=== PATIENT | female | born 1970 | race Hispanic/Latino ===

== ENCOUNTER 2021-03-04 18:58 | Emergency (ER) | payer OTHER ==
[~2021-03-04] VITALS: Ht 152.4 cm; Wt 108.9 kg
[2021-03-04] MEDS ORDERED: LIDOCAINE HCL 1% LOCAL INJ 20 ML VIAL ONE (19:39)
[2021-03-04] MEDS ORDERED: AUGMENTIN 500-1 EACH PO (20:48)
[2021-03-04] MEDS ORDERED: NAPROSYN500 MG PO (20:48)
[2021-03-04 20:59] VITALS: BP 147/82
== END 2021-03-04 20:59 | disposition home or self-care (01) ==
LOC: FSED 19:16
DX: S61.210A Laceration without foreign body of right index finger without damage to nail, initial encounter (principal); W26.8XXA Contact with other sharp object(s), not elsewhere classified, initial encounter; Y92.000 Kitchen of unspecified non-institutional (private) residence as the place of occurrence of the external cause
CPT/HCPCS: 12002; 99283; J2001